=== PATIENT | female | born 1985 | race Caucasian/White ===

== ENCOUNTER 2024-07-26 15:11 | Emergency (ER) | payer OTHER ==
[~2024-07-26] VITALS: Ht 162.6 cm; Wt 59.0 kg
[2024-07-26] MEDS ORDERED: IBUPROFEN 600 MG TABLET ONE (15:51)
[2024-07-26] MEDS ORDERED: LORAZEPAM 1 MG TABLET ONE (15:51)
[2024-07-26] MEDS: IBUPROFEN 600 MG TABLET PO ONE (15:54)
[2024-07-26] MEDS: LORAZEPAM 1 MG TABLET PO ONE (15:54)
[2024-07-26 17:10] VITALS: BP 116/74; TEMP 98.6; O2SAT 99
== END 2024-07-26 17:11 | disposition home or self-care (01) ==
LOC: ER 15:54
DX: R00.2 Palpitations (principal); R07.89 Other chest pain
CPT/HCPCS: 71045-TC